=== PATIENT | female | born 1960 | race Caucasian/White ===

== ENCOUNTER 2016-11-01 14:32 | Outpatient (CLI) | payer OTHER | END 2016-11-01 14:33 | disposition home or self-care (01) | DX: Z53.9 Procedure and treatment not carried out, unspecified reason (principal) ==

== ENCOUNTER 2016-12-02 13:40 | Outpatient (CLI) | payer OTHER | END 2016-12-02 13:41 | disposition home or self-care (01) | DX: N64.4 Mastodynia (principal) ==

== ENCOUNTER 2018-05-11 13:35 | Emergency (ER) | payer OTHER ==
[2018-05-11] MEDS ORDERED: IBUPROFEN 800 MG TABLET PO STA (13:59)
--- NOTE | 2018-05-11 13:59 | ED Physician Documentation ---
PD HPI Fall - Stated complaint Stated Complaint: FALL-BODY PX - Chief complaint Chief Complaint: Ext Problem - History obtained from History obtained from: Patient - History of Present Illness Mechanism of injury: Tripped Fall distance: Standing position Where injury occurred: Work Timing - onset: How many hours ago (6) Injury(ies) location: Neck, Left Uppper Extremity, Left Lower Extremity Associated symptoms: Neck pain. No: LOC Worsens with: Movement Similar symptoms before: Has not had sx before - Additional information Additional information: The patient is a 58-year-old female who tripped over a cable while at work this morning falling onto a plastic recycling bin that she was carrying. She impacted her left knee, left wrist and elbow, and her anterior neck hit the edge of the plastic bin. She complains of pain at the prepatellar aspect of her left knee, the ulnar aspect of her left wrist, left shoulder, and neck. The incident occurred about 6 hours prior to arrival. She has been ambulatory, but the pain has increased since the initial injury. Past history is significant for bilateral total knee replacement. Review of Systems Constitutional: denies: Fever Nose: denies: Congestion Throat: denies: Sore throat Cardiac: denies: Chest pain / pressure Respiratory: denies: Dyspnea, Cough GI: denies: Abdominal Pain, Nausea, Vomiting : denies: Incontinent Skin: denies: Rash, Laceration (s) Musculoskeletal: reports: Neck pain, Joint pain (Left knee and left wrist.). denies: Back pain Neurologic: denies: Focal weakness, Numbness, Headache, Head injury, LOC PD PAST MEDICAL HISTORY - Past Medical History Cardiovascular: Murmur, Arrhythmia Respiratory: None Endocrine/Autoimmune: None Psych: ADD/ADHD, Post traumatic stress disorder, Claustrophobia, Obsessive compulsive disorder Musculoskeletal: Osteoarthritis, Other - Past Surgical History General: Cholecystectomy Ortho: Knee replacement, Other /[employer]: section Derm: Skin cancer surgery - Present Medications Home Medications: Ambulatory Orders Medication Instructions Recorded Confirmed No Known Home Medications [No 05/11/18 05/11/18 Known Home Medications] - Allergies Allergies/Adverse Reactions: Allergies Allergy/AdvReac Type Severity Reaction Status Date / Time No Known Drug Allergies Allergy Verified 05/11/18 13:44 PD ED PE NORMAL - Vitals Vital signs reviewed: Yes (Normal) - General General: Alert and oriented X 3, Well developed/nourished - HEENT HEENT: Atraumatic - Neck Neck: No bony TTP, No adenopathy, No JVD, Other (There is a superficial abrasion over the anterior aspect of the neck, with mild tenderness to palpation. There is no soft tissue swelling or difficulty with swallowing.) - Cardiac Cardiac: RRR, No murmur - Respiratory Respiratory: No respiratory distress, Clear bilaterally, Other (No chest wall tenderness to palpation.) - Abdomen Abdomen: Soft, Non tender - Back Back: No spinal TTP - Derm Derm: No rash - Extremities Extremities: No edema, No calf tenderness / cord, Other (There is tenderness to palpation over the ulnar aspect of the left wrist, at the styloid process. She is able to fully flex and extend the wrist as well as supinate and pronate the forearm. Distal neurovascular is intact. Examination of the lower extremities reveals ecchymosis over the prepatellar aspect of the left knee, without break in the integument. There is no tenderness to palpation along the medial or lateral joint lines. She is able to fully extend and can flex to 90. Distal neurovascular is intact.) - Neuro Neuro: Alert and oriented X 3, No motor deficit, No sensory deficit Results - Vitals Vitals: Vital Signs - 24 hr 05/11/18 13:40 Temperature 37.1 C Heart Rate 81 Respiratory 16 Rate Blood Pressure 128/73 O2 Saturation 96 Oxygen O2 Source Room air - Rads (name of study) left wrist Radiology: Prelim report reviewed, EMP read contemporaneously, See rad report ( No evidence of fracture or dislocation.) PD MEDICAL DECISION MAKING - ED course Complexity details: reviewed results, re-evaluated patient, considered differential, d/w patient, d/w family ED course: The patient's presentation is significant for multiple contusions secondary to fall. Her contusions include left knee, left upper extremity, and neck. Injuries include sprain of the left wrist. X-ray of the left wrist reveals no evidence of fracture or dislocation. Treatment in the emergency department included administration of ibuprofen 800 mg orally. I discussed with the patient and her the expected course of injury, symptomatic treatment and outpatient follow-up, as well as potentially worrisome signs or symptoms that should prompt reevaluation in the emergency department. - Sepsis Event Vital Signs: Vital Signs - 24 hr 05/11/18 13:40 Temperature 37.1 C Heart Rate 81 Respiratory 16 Rate Blood Pressure 128/73 O2 Saturation 96 Oxygen O2 Source Room air Departure - Departure Disposition: 01 Home, Self Care Clinical Impression: Fall Qualifiers: Encounter type: initial encounter Qualified Code(s): W19.XXXA - Unspecified fall, initial encounter Contusion of left knee Qualifiers: Encounter type: initial encounter Qualified Code(s): S80.02XA - Contusion of left knee, initial encounter Strain of left wrist Qualifiers: Encounter type: initial encounter Qualified Code(s): S66.912A - Strain of unspecified muscle, fascia and tendon at wrist and hand level, left hand, initial encounter Contusion of neck Qualifiers: Encounter type: initial encounter Qualified Code(s): S10.93XA - Contusion of unspecified part of neck, initial encounter Condition: Stable Instructions: ED Contusion Lower Ext, ED Neck Back Pain General, ED Sprain Wrist Follow-Up: Gabriella Oviedo PA [Primary Care Provider] - Comments: Apply ice pack to the sore areas intermittently for the next 3 days. You can use ibuprofen, up to 800 mg 3 times daily for its anti-inflammatory effect. Let pain be your guide to activity level. Follow up with your primary physician within 2 weeks if not completely resolved. Return to the emergency department if you develop progressively worsening symptoms. Forms: Activity restrictions
--- NOTE | 2018-05-11 14:35 | XRAY Report ---
Reason: Fall with left wrist injury. Procedure Date: 05/11/2018 Accession Number: [id number] / [id number] Procedure: XR - Wrist 3 View LT CPT Code: FULL RESULT: EXAM: LEFT WRIST RADIOGRAPHY EXAM DATE: 05/11/2018 02:13 PM. CLINICAL HISTORY: Fall with left wrist injury. COMPARISON: None. TECHNIQUE: 3 views. FINDINGS: Bones: No fracture or focal bony lesion. Joints: No evidence of dislocation. Soft Tissues: No unexpected soft tissue findings. IMPRESSION: Sensitivity for detection of scaphoid fracture limited in the absence of ulnar deviated scaphoid view. Submitted images demonstrate no evidence of fracture or dislocation. RADIA
[2018-05-11 14:44] VITALS: BP 131/68
== END 2018-05-11 14:44 | disposition home or self-care (01) ==
LOC: ED 13:35
DX: S80.02XA Contusion of left knee, initial encounter (principal); S66.912A Strain of unspecified muscle, fascia and tendon at wrist and hand level, left hand, initial encounter; S10.93XA Contusion of unspecified part of neck, initial encounter; S10.91XA Abrasion of unspecified part of neck, initial encounter; Z96.653 Presence of artificial knee joint, bilateral; W01.198A Fall on same level from slipping, tripping and stumbling with subsequent striking against other object, initial encounter; Y93.89 Activity, other specified; Y92.89 Other specified places as the place of occurrence of the external cause; Y99.0 Civilian activity done for income or pay
CPT/HCPCS: 73110; 99283; A9270

== ENCOUNTER 2021-07-08 15:28 | Outpatient (CLI) | payer OTHER ==
--- NOTE | 2021-07-13 13:45 | Mammography Report ---
BILATERAL DIGITAL SCREENING MAMMOGRAM 3D/2D: 07/08/2021 CLINICAL: Routine screening. Comparison is made to exams dated: 12/02/2016 mammogram, 07/28/2015 mammogram, and 08/17/2013 mammogr am - [facility]. The tissue of both breasts is heterogeneously dense. This may low er the sensitivity of mammography. No significant masses, calcifications, or other findings are seen in either breast. There has been no significant interval change. IMPRESSION: NEGATIVE There is no mammographic evidence of malignancy. A 1 year screening mammogram is recommended. This exam was interpreted at Station ID: [id number]. NOTE: For mammograms, a report in lay terms will be sent to the patient. Approximately 15% of breast malignancies will not be visualized mammographically. In the management of a palpable breast mass, a negative mammogram must not discourage biopsy of a clinically suspicious lesion. Electronically Signed By: Marck Hurtado M.D. ddp/penrad:07/12/2021 15:55:36 ACR BI-RADS Category 1: Negative 3341F PARENCHYMAL PATTERN: (D) - The breast(s) demonstrate(s) heterogeneously dense fibroglandular marissa joy. BI-RADS CATEGORY: (1) - 1 RECOMMENDATION: (ANNUAL) - Recommend routine annual screening mammography. [id number] 1 year screening LATERALITY: (B)
== END 2021-07-08 15:29 | disposition home or self-care (01) ==
LOC: DI.N 15:28
DX: Z12.31 Encounter for screening mammogram for malignant neoplasm of breast (principal)

== ENCOUNTER 2023-08-05 10:53 | Outpatient (CLI) | payer OTHER ==
--- NOTE | 2023-08-06 17:43 | Ultrasound Report ---
PROCEDURE: Duplex Ext Veins Right INDICATIONS: CHRONIC RIGHT CALF CRAMPING TECHNIQUE: Real-time imaging, as well as color and pulse Doppler interrogation, were performed of the lower extr emity deep veins from the inguinal ligament to the popliteal fossa. Attempted visualization of the ca lf veins was performed. COMPARISON: None. FINDINGS: The deep veins are normally compressible, and free of intraluminal thrombus. Color and pu lse Doppler demonstrate normal phasic intraluminal flow. There is normal augmentation response to di stal compression maneuver. IMPRESSION: No deep venous thrombosis of the visualized lower extremity. Reviewed by: Marcella Carrero MD on 08/06/2023 5:41 PM PST Approved by: Marcella Carrero MD on 08/06/2023 5:41 PM PST Station ID: [id number]
== END 2023-08-05 10:54 | disposition home or self-care (01) ==
LOC: DI 10:53
PROVIDERS: ATTEND Nurse Practitioner Primary Care
DX: R25.2 Cramp and spasm (principal); R20.0 Anesthesia of skin; R20.2 Paresthesia of skin; M79.604 Pain in right leg

== ENCOUNTER 2023-08-15 16:04 | Outpatient (CLI) | payer OTHER ==
--- NOTE | 2023-08-16 08:22 | MRI Report ---
PROCEDURE: LUMBAR SPINE WO INDICATIONS: INTERVERTEBRAL DISC DISORDERS W RADICULOPATHY, LUMBAR TECHNIQUE: Noncontrast sagittal T1 spin echo and T2 fast echo, sagittal STIR, axial T1 and T2 fast spin echo thr ough the lumbar spine. In cases with scoliosis, additional coronal T2 fast spin echo may be performe d. COMPARISON: None. FINDINGS: Image quality: Excellent. Alignment and Curvature: There is normal bony alignment. There are 4 nonrib-bearing lumbar vertebra l bodies. Axial imaging will be described as having occurred from T11-T12 through L4-S1. Bone Marrow: Marrow is of normal overall signal. No acute vertebral body compression fractures. Spinal Cord: Conus medullaris terminates at the top of L2 level. Visualized cord demonstrates jarred l signal and size. Paraspinous Soft Tissues: No paravertebral masses. T11-T12: Normal in appearance T12-L1: Facet hypertrophy. No canal stenosis or foraminal stenosis. L1-L2: Moderate facet hypertrophy. No canal stenosis or foraminal stenosis. L2-L3: Moderate facet hypertrophy. No canal stenosis or foraminal stenosis. L3-L4: Mild disc bulge. Moderate facet hypertrophy. Borderline canal stenosis. No significant abigail inal stenosis. L4-S1: Prominent hypertrophy. No canal stenosis. Mild bilateral foraminal stenosis. IMPRESSION: 1. There are 4 nonrib-bearing lumbar vertebral bodies. Axial imaging will be described as having occu rred from T11-T12 through L4-S1. 2. Multilevel facet arthropathy. 3. No significant canal stenosis or significant foraminal stenosis. Reviewed by: Yassine Matute MD on 08/16/2023 8:21 AM PST Approved by: Yassine Matute MD on 08/16/2023 8:21 AM PST Station ID: [id number]
== END 2023-08-15 16:05 | disposition home or self-care (01) ==
LOC: DI 16:04
PROVIDERS: ATTEND Nurse Practitioner Primary Care
DX: M51.16 Intervertebral disc disorders with radiculopathy, lumbar region (principal); M47.26 Other spondylosis with radiculopathy, lumbar region; M47.25 Other spondylosis with radiculopathy, thoracolumbar region; M47.27 Other spondylosis with radiculopathy, lumbosacral region